=== PATIENT | female | born 1990 | race Two or more races ===

== ENCOUNTER 2022-11-17 20:17 | Inpatient (IN) | payer MEDICAID, OTHER ==
[~2022-11-17] VITALS: Ht 157.5 cm; Wt 55.0 kg
[2022-11-17 21:50] LABS: Hematocrit 31.5 % (36.0-46.0); Hemoglobin 10.1 g/dL (12.2-16.2); Mean Corpuscular Hemoglobin 27.1 pg (28.0-32.0); Mean Corpuscular Hgb Conc. 31.9 g/dL (32.0-36.0); Mean Corpuscular Volume 84.8 fL (80.0-100.0); Red Blood Cells 3.72 10^6/uL (4.0-5.20); Red Cell Distribution Width 14.1 % (11.8-14.3)
[2022-11-17 21:58] LABS: White Blood Cell 39.7 10^3/uL (4.4-10.8)
[2022-11-17 22:00] LABS: Basophils % (manual) 0 (0.0-2.0); Blast Cells 0; Eosinophils % (manual) 0 (0-7); Metamyelocytes % 0; Myelocytes % 0; Promyelocytes % 0; Reactive Lymphocytes 0
[2022-11-17 22:20] LABS: Albumin 1.7 g/dL (3.4-5.0); BUN/Creatinine Ratio 7.5; Calcium 8.9 mg/dL (8.5-10.1); Potassium 3.4 mmol/L (3.5-5.1)
[2022-11-17 22:23] LABS: Bilirubin, Total 0.3 mg/dL (0.2-1.0); Total Protein 8.7 g/dL (6.4-8.2)
[2022-11-17 22:28] LABS: Band Neutrophils % (manual) 4; Lymphocytes % (manual) 11 (10.0-50.0); Monocytes % (manual) 2 (0-12)
[2022-11-17] MEDS ORDERED: SODIUM CHLORIDE 0.9% 1,650 ML IV ONE (22:45)
[2022-11-18] MEDS ORDERED: ONDANSETRON HCL 4 MG/2 ML VIAL IV ONE
[2022-11-18] MEDS ORDERED: CLINDAMYCIN 600MG IV 50 ML IV ONE
[2022-11-18] MEDS ORDERED: MORPHINE SULFATE INJ 2 MG/ml SYRG IV ONE
[2022-11-18] MEDS ORDERED: DEXTROSE (50%) 50ML SYRG IV PRN (01:00)
[2022-11-18] MEDS ORDERED: ACETAMINOPHEN 325 MG TAB PO PRN (01:00)
[2022-11-18] MEDS ORDERED: SODIUM CHLORIDE 0.9% 1,000 ML IV SCH ×2 (01:00→13:30)
[2022-11-18] MEDS ORDERED: DOCUSATE SOD 100 MG CAP PO PRN (01:00)
[2022-11-18] MEDS ORDERED: VANCOMYCIN PER PHARMACY 0 MG IV SCH (01:00)
[2022-11-18] MEDS ORDERED: VANCOMYCIN 1GM/250ML 250 ML IV ONE (02:30)
[2022-11-18] MEDS ORDERED: MORPHINE SULFATE INJ 2 MG/ml SYRG IV PRN (02:30)
[2022-11-18] MEDS ORDERED: NITROGLYCERIN 0.4 MG SL TAB SL PRN (02:30)
[2022-11-18] MEDS ORDERED: CLINDAMYCIN 600MG IV 50 ML IV SCH (06:00)
[2022-11-18] MEDS: ALBUMIN 25% 100 ML IV SCH ×3 (06:15→17:00)
[2022-11-18] MEDS: ACCU-CHEK COMFORT CURVE STRIP VI SCH ×4 (07:19→22:26)
[2022-11-18] MEDS: InsuLIN REG 1unit/0.01ml Soln (100units/ml) SC SCH ×4 (07:22→22:28)
[2022-11-18 08:36] LABS: Hematocrit 26.2 % (36.0-46.0); Hemoglobin 8.7 g/dL (12.2-16.2); Mean Corpuscular Hemoglobin 27.3 pg (28.0-32.0); Mean Corpuscular Hgb Conc. 33.1 g/dL (32.0-36.0); Mean Corpuscular Volume 82.5 fL (80.0-100.0); Red Blood Cells 3.18 10^6/uL (4.0-5.20); Red Cell Distribution Width 13.8 % (11.8-14.3); White Blood Cell 28.1 10^3/uL (4.4-10.8)
[2022-11-18 08:40] LABS: Basophils % (manual) 0 (0.0-2.0); Blast Cells 0; Eosinophils % (manual) 0 (0-7); Metamyelocytes % 0; Monocytes % (manual) 0 (0-12); Myelocytes % 0; Promyelocytes % 0; Reactive Lymphocytes 0
[2022-11-18 08:52] LABS: Albumin 1.9 g/dL (3.4-5.0); BUN/Creatinine Ratio 9.1; Calcium 7.7 mg/dL (8.5-10.1); Potassium 3.1 mmol/L (3.5-5.1)
[2022-11-18 08:56] LABS: Bilirubin, Total 0.2 mg/dL (0.2-1.0)
[2022-11-18 09:08] LABS: Band Neutrophils % (manual) 4; Lymphocytes % (manual) 11 (10.0-50.0)
[2022-11-18] MEDS ORDERED: HEPARIN SODIUM (PORCINE) 5000 UNITS/ML 1ML VIAL SC SCH (10:00)
[2022-11-18] MEDS ORDERED: FAMOTIDINE (10MG/ML) 2ML VL IV SCH (10:00)
[2022-11-18] MEDS: ASCORBIC ACID 500 MG TAB PO SCH ×2 (10:16→22:26)
[2022-11-18] MEDS: ASPirin 81 mg TAB PO SCH (10:17)
[2022-11-18] MEDS: ZINC SULFATE 220mg CAP or TAB PO SCH (10:17)
[2022-11-18] MEDS: MULTIPLE VITAMIN TAB PO SCH (10:17)
[2022-11-18] MEDS ORDERED: POTASSIUM EFFERVESENT TAB 25 MEQ PO ONE (10:45)
[2022-11-18 11:14] LABS: Magnesium 2.1 mg/dL (1.6-2.6); Phosphorus 4.1 mg/dL (2.5-4.90)
[2022-11-18] MEDS ORDERED: MEROPENEM 1GM IVPB 100 ML IV ONE (13:45)
[2022-11-18] MEDS ORDERED: MEROPENEM 500MG IVPB 50 ML IV ONE (13:45)
[2022-11-18 13:48] LABS: Alcohol, Urine < 3.0 mg/dL (0-10); Amphetamine Screen, Urine NEGATIVE (NEGATIVE); Barbiturate Scree,Urine NEGATIVE (NEGATIVE); Benzodiazephine Screen, Urine NEGATIVE (NEGATIVE); Cannabinoid Screen, Urine NEGATIVE (NEGATIVE); Cocaine Screen, Urine NEGATIVE (NEGATIVE); Opiate Scree,Urine NEGATIVE (NEGATIVE); Phencyclidine Screen, Urine NEGATIVE (NEGATIVE)
[2022-11-18 14:39] LABS: Urine Bacteria MANY /hpf (None Seen); Urine Blood 1+ /uL (Negative); Urine Specific Gravity 1.013 (1.001-1.035); Urine WBC 703 /hpf (0 - 5); Urine WBC Clumps PRESENT /hpf (None Seen)
[2022-11-18 16:02] LABS: INR 0.97 (0.9-1.15); Partial Thromboplastin Time 32.8 sec (24.6-33.4)
[2022-11-18] MEDS ORDERED: levoFLOXacin 500MG 100 ML IV ONE (20:00)
[2022-11-18] MEDS: SOD CHL 0.45% 1,000 ML IV SCH ×2 (20:15→23:45)
[2022-11-18] MEDS ORDERED: MEROPENEM 500MG IVPB 50 ML IV SCH (22:00)
[2022-11-18] MEDS: HYDROcodone-ACET 5/325MG TAB PO PRN (23:17)
[2022-11-19 06:18] LABS: Hematocrit 27.6 % (36.0-46.0); Hemoglobin 8.9 g/dL (12.2-16.2); Mean Corpuscular Hemoglobin 27.5 pg (28.0-32.0); Mean Corpuscular Hgb Conc. 32.3 g/dL (32.0-36.0); Mean Corpuscular Volume 85.1 fL (80.0-100.0); Red Blood Cells 3.24 10^6/uL (4.0-5.20); Red Cell Distribution Width 13.7 % (11.8-14.3); White Blood Cell 25.8 10^3/uL (4.4-10.8)
[2022-11-19 06:27] LABS: Basophils % (manual) 0 (0.0-2.0); Blast Cells 0; Metamyelocytes % 0; Myelocytes % 0; Promyelocytes % 0; Reactive Lymphocytes 0
[2022-11-19 06:44] LABS: Albumin 2.4 g/dL (3.4-5.0); Bilirubin, Total 0.3 mg/dL (0.2-1.0); Calcium 8.3 mg/dL (8.5-10.1); Potassium 3.7 mmol/L (3.5-5.1); Total Protein 6.6 g/dL (6.4-8.2)
[2022-11-19] MEDS: ACCU-CHEK COMFORT CURVE STRIP VI SCH ×4 (06:48→21:54)
[2022-11-19] MEDS: InsuLIN REG 1unit/0.01ml Soln (100units/ml) SC SCH ×4 (07:06→21:53)
[2022-11-19] MEDS: ONDANSETRON HCL 4 MG/2 ML VIAL IV PRN (08:32)
[2022-11-19 08:34] LABS: Band Neutrophils % (manual) 8; Eosinophils % (manual) 1 (0-7); Lymphocytes % (manual) 17 (10.0-50.0); Monocytes % (manual) 9 (0-12)
[2022-11-19] MEDS ORDERED: fentaNYL CITRATE 100 MCG/2 ML VL ONE (09:30)
[2022-11-19] MEDS ORDERED: MIDAZOLAM HCL 2MG/2ML 2ml VIAL (1mg/ml) ONE (09:31)
[2022-11-19] MEDS ORDERED: ONDANSETRON HCL 4 MG/2 ML VIAL ONE (09:31)
[2022-11-19] MEDS ORDERED: DexAMETHasone SOD PHOS 10MG/1ML VIAL INJ ONE (09:31)
[2022-11-19] MEDS ORDERED: MEPERIDINE HCL (25 MG/ML) 1ML VIAL ONE (09:31)
[2022-11-19] MEDS ORDERED: SODIUM CHLORIDE LOCK 10 ML ONE (09:31)
[2022-11-19] MEDS ORDERED: PROPOFOL 10 MG/ML 20 ML IV ONE (09:31)
[2022-11-19] MEDS: ZINC SULFATE 220mg CAP or TAB PO SCH (10:00)
[2022-11-19] MEDS: ASCORBIC ACID 500 MG TAB PO SCH ×2 (10:00→21:54)
[2022-11-19] MEDS: ASPirin 81 mg TAB PO SCH (10:00)
[2022-11-19] MEDS: MULTIPLE VITAMIN TAB PO SCH (10:00)
[2022-11-19] MEDS ORDERED: MORPHINE SULFATE INJ 2 MG/ml SYRG IV PRN (10:30)
[2022-11-19] MEDS ORDERED: ACCU-CHEK COMFORT CURVE STRIP VI ONE (10:30)
[2022-11-19] MEDS ORDERED: HYDROmorphone HCL 2 MG/ML VL/or syr IV PRN ×2 (10:30)
[2022-11-19] MEDS ORDERED: METOCLOPRAMIDE HCL 5MG/ml INJ 2ml VIAL IV PRN (10:30)
[2022-11-19] MEDS ORDERED: ESMOLOL HCL 10 ML IV ONE (11:01)
[2022-11-19 13:00] VITALS: BP 136/87
[2022-11-19] MEDS: VANCOMYCIN 1GM/250ML 250 ML IV SCH (13:18)
[2022-11-19 13:22] VITALS: BP 136/87
[2022-11-19 13:45] VITALS: BP 136/87
[2022-11-19] MEDS: levoFLOXacin 250MG 50 ML IV SCH (14:44)
[2022-11-19] MEDS: SODIUM BICARBONATE 50ML VIAL 50 ML in SOD CHL 0.45% 1,000 ML IV SCH ×2 (15:40→21:54)
[2022-11-19 16:55] LABS: Urine Bacteria NONE SEEN /hpf (None Seen); Urine Blood 1+ /uL (Negative); Urine Hyaline Cast FEW /lpf (0 - 2); Urine Mucus FEW (None Seen); Urine WBC 28 /hpf (0 - 5)
[2022-11-19 17:00] VITALS: BP 133/89
[2022-11-19] MEDS: HYDROcodone-ACET 5/325MG TAB PO PRN ×2 (17:20→22:08)
[2022-11-19] MEDS ORDERED: INSLANTI SC (19:35)
[2022-11-19 22:00] VITALS: BP 126/83
[2022-11-20 05:00] VITALS: BP 120/76
[2022-11-20 05:53] LABS: Basophils # (auto) 0.1 10 ^3/uL (0-0.2); Basophils % (auto) 0.5 % (0.0-2.0); Eosinophils # (auto) 0.3 10 ^3/uL (0-0.8); Eosinophils % (auto) 2.1 % (0.0-7.0); Hemoglobin 8.6 g/dL (12.2-16.2); Lymphocytes # (auto) 3.6 10 ^3/uL (0.4-5.4); Lymphocytes % (auto) 23.1 % (10.0-50.0); Mean Corpuscular Hemoglobin 27.2 pg (28.0-32.0); Monocytes % (auto) 6.5 % (0.0-12.0); Neutrophils # (auto) 10.5 10 ^3/uL (1.6-8.6); Neutrophils % (auto) 67.8 % (37.0-80.0); Nucleated Red Blood Cells % 0.1 %; Red Blood Cells 3.17 10^6/uL (4.0-5.20); Red Cell Distribution Width 13.9 % (11.8-14.3); White Blood Cell 15.4 10^3/uL (4.4-10.8)
[2022-11-20 05:56] LABS: BUN/Creatinine Ratio 6.7; Calcium 8.5 mg/dL (8.5-10.1); Potassium 4.3 mmol/L (3.5-5.1)
[2022-11-20] MEDS: ACCU-CHEK COMFORT CURVE STRIP VI SCH ×4 (06:30→21:12)
[2022-11-20] MEDS: InsuLIN REG 1unit/0.01ml Soln (100units/ml) SC SCH ×4 (06:31→21:13)
[2022-11-20] MEDS: HYDROcodone-ACET 5/325MG TAB PO PRN (08:34)
[2022-11-20 09:00] VITALS: BP 138/93
[2022-11-20] MEDS: VANCOMYCIN 1GM/250ML 250 ML IV SCH (09:03)
[2022-11-20] MEDS: MULTIPLE VITAMIN TAB PO SCH (11:15)
[2022-11-20] MEDS: ZINC SULFATE 220mg CAP or TAB PO SCH (11:15)
[2022-11-20] MEDS: ASCORBIC ACID 500 MG TAB PO SCH ×2 (11:15→23:47)
[2022-11-20] MEDS: levoFLOXacin 250MG 50 ML IV SCH (11:15)
[2022-11-20] MEDS: ASPirin 81 mg TAB PO SCH (11:15)
[2022-11-20 13:00] VITALS: BP 125/83
[2022-11-20] MEDS: ONDANSETRON HCL 4 MG/2 ML VIAL IV PRN (14:50)
[2022-11-20] MEDS: MORPHINE SULFATE INJ 2 MG/ml SYRG IV PRN (14:51)
[2022-11-20 17:15] VITALS: BP 147/98
[2022-11-20] MEDS: SODIUM BICARBONATE 50ML VIAL 50 ML in SOD CHL 0.45% 1,000 ML IV SCH ×2 (18:30→20:00)
[2022-11-20 22:00] VITALS: BP 145/92
[2022-11-21 05:00] VITALS: BP 124/86
[2022-11-21] MEDS: ACCU-CHEK COMFORT CURVE STRIP VI SCH ×4 (06:24→22:24)
[2022-11-21] MEDS: SODIUM BICARBONATE 50ML VIAL 50 ML in SOD CHL 0.45% 1,000 ML IV SCH ×2 (06:24→17:00)
[2022-11-21] MEDS: InsuLIN REG 1unit/0.01ml Soln (100units/ml) SC SCH ×4 (06:25→22:27)
[2022-11-21] MEDS: HYDROcodone-ACET 5/325MG TAB PO PRN (06:52)
[2022-11-21 08:15] LABS: Basophils # (auto) 0.1 10 ^3/uL (0-0.2); Basophils % (auto) 0.7 % (0.0-2.0); Eosinophils # (auto) 0.1 10 ^3/uL (0-0.8); Hematocrit 27.2 % (36.0-46.0); Hemoglobin 8.9 g/dL (12.2-16.2); Lymphocytes # (auto) 2.3 10 ^3/uL (0.4-5.4); Lymphocytes % (auto) 17.8 % (10.0-50.0); Mean Corpuscular Hemoglobin 27.8 pg (28.0-32.0); Mean Corpuscular Hgb Conc. 32.7 g/dL (32.0-36.0); Mean Corpuscular Volume 85.1 fL (80.0-100.0); Monocytes # (auto) 0.4 10 ^3/uL (0-1.3); Monocytes % (auto) 3.4 % (0.0-12.0); Neutrophils # (auto) 9.8 10 ^3/uL (1.6-8.6); Neutrophils % (auto) 77.1 % (37.0-80.0); Red Blood Cells 3.19 10^6/uL (4.0-5.20); Red Cell Distribution Width 13.8 % (11.8-14.3); White Blood Cell 12.7 10^3/uL (4.4-10.8)
[2022-11-21 08:36] LABS: Calcium 7.7 mg/dL (8.5-10.1); Potassium 3.3 mmol/L (3.5-5.1)
[2022-11-21] MEDS ORDERED: INSULIN LANTUS (GLARGINE) 1 /0.01ml (100units/ml) SC ONE (08:45)
[2022-11-21 09:00] VITALS: BP 175/100
[2022-11-21] MEDS ORDERED: POTASSIUM CHL 20 Meq TABLET PO ONE (09:00)
[2022-11-21 09:12] VITALS: BP 144/87
[2022-11-21] MEDS: ASPirin 81 mg TAB PO SCH (09:13)
[2022-11-21] MEDS: ZINC SULFATE 220mg CAP or TAB PO SCH (09:14)
[2022-11-21] MEDS: ASCORBIC ACID 500 MG TAB PO SCH ×2 (09:14→22:24)
[2022-11-21] MEDS: MULTIPLE VITAMIN TAB PO SCH (09:15)
[2022-11-21] MEDS: levoFLOXacin 250MG 50 ML IV SCH (09:16)
[2022-11-21 13:00] VITALS: BP 149/87
[2022-11-21] MEDS: MORPHINE SULFATE INJ 2 MG/ml SYRG IV PRN (15:24)
[2022-11-21 17:26] VITALS: BP 143/95
[2022-11-21 22:00] VITALS: BP_SYST 113; BP_SYST 150; BP_DIAS 62; BP_DIAS 97
[2022-11-21] MEDS ORDERED: INSULIN LANTUS (GLARGINE) 1 /0.01ml (100units/ml) SC SCH (22:00)
[2022-11-21] MEDS: INSULIN LANTUS (GLARGINE) 1 /0.01ml (100units/ml) SC SCH (22:25)
[2022-11-22] MEDS: SODIUM BICARBONATE 50ML VIAL 50 ML in SOD CHL 0.45% 1,000 ML IV SCH ×2 (04:50→14:00)
[2022-11-22 05:00] VITALS: BP 136/87
[2022-11-22] MEDS: InsuLIN REG 1unit/0.01ml Soln (100units/ml) SC SCH ×3 (06:09→17:00)
[2022-11-22] MEDS: INSULIN LANTUS (GLARGINE) 1 /0.01ml (100units/ml) SC SCH (06:17)
[2022-11-22 06:36] LABS: Basophils # (auto) 0.1 10 ^3/uL (0-0.2); Basophils % (auto) 0.6 % (0.0-2.0); Eosinophils # (auto) 0.2 10 ^3/uL (0-0.8); Eosinophils % (auto) 2.5 % (0.0-7.0); Hematocrit 27.2 % (36.0-46.0); Hemoglobin 8.8 g/dL (12.2-16.2); Lymphocytes % (auto) 31.6 % (10.0-50.0); Mean Corpuscular Hemoglobin 27.7 pg (28.0-32.0); Mean Corpuscular Hgb Conc. 32.6 g/dL (32.0-36.0); Monocytes # (auto) 0.6 10 ^3/uL (0-1.3); Monocytes % (auto) 6.3 % (0.0-12.0); Neutrophils # (auto) 5.5 10 ^3/uL (1.6-8.6); Nucleated Red Blood Cells % 0.1 %; Red Blood Cells 3.19 10^6/uL (4.0-5.20); Red Cell Distribution Width 13.8 % (11.8-14.3); White Blood Cell 9.3 10^3/uL (4.4-10.8)
[2022-11-22 06:51] LABS: Potassium 3.6 mmol/L (3.5-5.1)
[2022-11-22] MEDS: ACCU-CHEK COMFORT CURVE STRIP VI SCH ×3 (07:00→17:00)
[2022-11-22 07:16] LABS: BUN/Creatinine Ratio 7.1; Calcium 8.2 mg/dL (8.5-10.1)
[2022-11-22 08:49] VITALS: BP 158/96
[2022-11-22] MEDS: MULTIPLE VITAMIN TAB PO SCH (09:18)
[2022-11-22] MEDS: ZINC SULFATE 220mg CAP or TAB PO SCH (09:18)
[2022-11-22] MEDS: ASPirin 81 mg TAB PO SCH (09:18)
[2022-11-22] MEDS: ASCORBIC ACID 500 MG TAB PO SCH (09:18)
[2022-11-22] MEDS: levoFLOXacin 250MG 50 ML IV SCH (09:19)
[2022-11-22] MEDS ORDERED: VANCOMYCIN 750mg/250ml 250 ML IV SCH (11:00)
[2022-11-22 12:51] VITALS: BP 165/112
[2022-11-22] MEDS ORDERED: LINEZOLID 600MG/300ML 300 ML IV SCH (13:30)
[2022-11-22] MEDS ORDERED: BACDST PO (17:05)
[2022-11-22 17:40] VITALS: BP 154/98
[2022-11-23] MEDS ORDERED: Juven Orange Powder PACKET 27.5gm PO SCH (10:00)
== END 2022-11-22 19:25 | disposition home or self-care (01) | DRG 720 ==
LOC: ER 20:19 → OVERFLOW 11-18 02:22 → TELE 11-18 07:31 → TELE-EAST 11-19 09:03
PROVIDERS: ADMIT Nurse Practitioner Family; ATTEND Internal Medicine Geriatric Medicine
PROC: 0H9U0ZZ Drainage of Left Breast, Open Approach (ICD-10-PCS; principal; 2022-11-19 10:44)
DX: A41.9 Sepsis, unspecified organism (principal); N17.0 Acute kidney failure with tubular necrosis; E44.1 Mild protein-calorie malnutrition; E87.1 Hypo-osmolality and hyponatremia; E88.09 Other disorders of plasma-protein metabolism, not elsewhere classified; E11.22 Type 2 diabetes mellitus with diabetic chronic kidney disease; D64.9 Anemia, unspecified; Z20.822 Contact with and (suspected) exposure to COVID-19; D75.839 Thrombocytosis, unspecified; E11.65 Type 2 diabetes mellitus with hyperglycemia; E87.6 Hypokalemia; N18.9 Chronic kidney disease, unspecified; B95.62 Methicillin resistant Staphylococcus aureus infection as the cause of diseases classified elsewhere; N39.0 Urinary tract infection, site not specified; N61.1 Abscess of the breast and nipple; Z83.3 Family history of diabetes mellitus; Z88.8 Allergy status to other drugs, medicaments and biological substances; Z98.891 History of uterine scar from previous surgery; Z79.4 Long term (current) use of insulin; Z68.22 Body mass index [BMI] 22.0-22.9, adult
CPT/HCPCS: 36415; 76775; 80048; 80053; 80202; 80307; 81001; 81025; 82306; 82565; 82570; 82962; 83036; 83605; 83735; 83935; 83970; 84100; 84156; 84300; 84520; 84702; 85007; 85025; 85027; 85610; 85730; 87040; 87070; 87075; 87077; 87186; 87205; 87426; 96361; 96365; 96367; 96372; 96375; G0378; J1100; J1815; J1956; J2250; J2405; J2704; J3490; P9047